=== PATIENT | female | born 1940 | race Caucasian/White ===

== ENCOUNTER → 2020-12-31 15:37 | Outpatient (CLI) | payer MEDICARE, MEDICAID, SELFPAY ==
--- NOTE | 2020-12-31 15:39 | DI.RAD.S_ITS ---
PROCEDURE: XR CERVICAL SPINE 4V OR 5V INDICATIONS: NECK PAIN TECHNIQUE: 5 views of the cervical spine were acquired. COMPARISON: [facility], CT, CT CERVICAL SPINE WITHOUT CONTRAST, 11/02/2020, 5:21. FINDINGS: Bones: No fractures or dislocations to the C5 level. Loss of lordosis which could be related to muscle spasm, rigidity or simply positional. Multilevel disc degeneration, most notably and moderate to severe at the C4-C5 and severe at the C5-C6 level. Oblique views demonstrate mild to moderate bilateral multilevel facet joint arthropathy. Multilevel uncovertebral hypertrophy. Moderate multilevel facet joint arthropathy. No suspicious bony lesions. . Soft tissues: Prevertebral soft tissues are normal in thickness. IMPRESSION: Loss of lordosis and multilevel spondylosis. Dictated by: Wiley BROOKE Interpreted: Winston Abad MD on 12/31/2020 at 16:40 Approved by: Winston Abad M.D. on 12/31/2020 at 17:08
== END ==
PROVIDERS: PCP Nurse Practitioner; Referring Provider Physical Medicine & Rehabilitation; Visit Provider Physical Medicine & Rehabilitation
DX: M47.812 Spondylosis without myelopathy or radiculopathy, cervical region (principal); M50.20 Other cervical disc displacement, unspecified cervical region
CPT/HCPCS: 72050